=== PATIENT | male | born 1940 | race Caucasian/White ===

== ENCOUNTER 2018-08-22 23:30 | Emergency (ER) | payer OTHER ==
[~2018-08-22] VITALS: Ht 167.6 cm; Wt 83.5 kg
[2018-08-22 23:44] VITALS: BP 150/90
--- NOTE | 2018-08-22 23:44 | NUR ---
TO BED # 11 AMBULATORY, REPORT GIVEN TO SARITHA GARCIA
--- NOTE | 2018-08-22 23:50 | NUR ---
ASSUMED CARE OF PT AT THIS TIME. C/O SANCHEZ X 2 HOURS W/ CONFUSION AND DECREASED PO INTAKE. PT IS AAOX2; PATIENT STATES PAIN OF 10/10; VSS; PATIENT POSITIONED FOR COMFORT; HOB ELEVATED; BEDRAILS UP X2; BED DOWN. ER MD MADE AWARE OF PT STATUS. WILL CONTINUE TO MONITOR.
[2018-08-23 01:27] LABS: ANION GAP 13.5 (8-16); CARBON DIOXIDE 30.2 mmol/L (21-32); CHLORIDE 101 mmol/L (98-107); CREATININE 1.1 mg/dL (0.7-1.3); GLUCOSE 121 mg/dL (74-106); POTASSIUM 3.7 mmol/L (3.5-5.1); SODIUM SERUM 141 mmol/L (136-145); UREA NITROGEN, BLOOD 11 mg/dL (7-18)
--- NOTE | 2018-08-23 03:30 | NUR ---
PT RESTING COMFORTABLY AT THIS TIME. SPOUSE AT BEDSIDE. NAD. VSS. PT AWAITS MD DISPOSITION. WILL CONTINUE TO MONITOR.
[2018-08-23 05:13] LABS: APPEARANCE,URINE CLEAR (CLEAR); BILIRUBIN,URINE NEGATIVE (NEGATIVE); BLOOD, URINE 1+ (NEGATIVE); COLOR,URINE YELLOW (YELLOW); LEUKOCYTE ESTERASE ,URINE NEGATIVE (NEGATIVE); NITRITE, URINE NEGATIVE (NEGATIVE); UGLUCOSE NEGATIVE (NEGATIVE)
[2018-08-23 05:50] VITALS: BP 151/84
[2018-08-23 05:50] LABS: RBC,URINE 3-10 (FEW) /HPF (0-5); WBC,URINE 0-5 (RARE) /HPF (0-5)
--- NOTE | 2018-08-23 05:50 | NUR ---
Patient discharged with v/s stable. Written and verbal after care instructions given and explained. Patient verbalized understanding. Ambulatory with steady gait. All questions addressed prior to discharge. Advised to follow up with PMD.
== END 2018-08-23 05:50 | disposition home or self-care (01) ==
LOC: MED 23:30
DX: J06.9 Acute upper respiratory infection, unspecified (principal); F03.90 Unspecified dementia, unspecified severity, without behavioral disturbance, psychotic disturbance, mood disturbance, and anxiety; E78.5 Hyperlipidemia, unspecified; I10 Essential (primary) hypertension
CPT/HCPCS: 36415; 71045; 80048; 81001; 81002; 87804; 99284; Q0092